=== PATIENT | male | born 1995 | race Caucasian/White ===

== ENCOUNTER 2020-05-28 08:47 | Outpatient (REF) | payer OTHER, SELFPAY ==
[2020-05-28 10:21] LABS: Hematocrit 49.5 % (42-52); Hemoglobin 16.5 g/dl (14.0-18.0); Mean Corpuscular HGB Conc 33.3 g/dl (31.0-36.0); Mean Platelet Volume 10.3 fL (9.4-12.4); Platelet Count 252 X10*3/uL (160-400); Red Blood Count 5.32 X10*6/uL (4.60-5.80); Red Cell Distribution Width 11.9 % (11.0-16.0); White Blood Count 5.5 X10*3/uL (4.8-10.8)
[2020-05-28 10:44] LABS: Alanine Aminotransferase 238 U/L (0-40); Cholesterol 232 mg/dL; HDL Cholesterol 57 mg/dL; LDL Cholesterol Calculated 116 mg/dl; Triglycerides 296 mg/dL
[2020-05-30 04:10] LABS: Hepatitis A Antibody IgG REACTIVE (Nonreactive); ~Hepatitis A Antibody IgG 11.54 S/CO (0.00-0.99)
== END 2020-05-28 08:48 | disposition home or self-care (01) ==
LOC: HO.LAB 08:47
PROVIDERS: Visit Provider Internal Medicine
DX: Z02.1 Encounter for pre-employment examination (principal)
CPT/HCPCS: 36415; 80061; 84460; 85027; 86708